=== PATIENT | male | born 1960 | race African-American/Black ===

== ENCOUNTER 2017-01-30 00:07 | Emergency (ER) | payer OTHER ==
[~2017-01-30] VITALS: Ht 190.5 cm; Wt 100.7 kg
--- NOTE | ~2017-01-30 | CT4 ---
[facility] A Service of [facility] RADIOLOGY TEXT RESULTS PATIENT: ILDEFONSO FARRAR LOCATION: SED : 60 UNIT #: [id number] AGE: [address]: Wilmar Dominguez MD SEX: M ORDER DR: [id number] [place] [id number] E MR#: [id number] Acc #: [id number] NAME: ILDEFONSO FARRAR : 1960 SEX: M STUDY DATE/TIME: 01/30/2017 0:43 UNIT: SED ROOM: STUDY DESCRIPTION: CT Abd and Pelv Wo Cont Attending Physician: Wilmar Dominguez M.D. Ordering Physician: Wilmar Dominguez M.D. MEDICAL IMAGING REPORT This report is preliminary unless electronic signature is present. EXAM CT abdomen and pelvis without contrast INDICATION Right flank pain since 01/26/2017. PROCEDURE Unenhanced CT of the abdomen and pelvis. This CT examination was performed with one or more of the following radiation dose reduction techniques: automatic exposure control, adjustment of mA and/or kV according to patient size, and iterative reconstruction. COMPARISON None. FINDINGS ABDOMEN WITHOUT CONTRAST: Included lung bases clear. The liver, spleen, adrenal glands, pancreas and gallbladder have an unremarkable unenhanced appearance. Uncomplicated colonic diverticula. Appendix normal. 1-2 mm calculus in the right UVJ. [id number] hydronephrosis. PELVIS WITHOUT CONTRAST: No radiodense bladder calculus. No aggressive appearing bone lesion. IMPRESSION 1. 1-2 mm calculus in the right UVJ with moderate hydronephrosis. 2. No other acute findings. [facility] A Service of [facility] RADIOLOGY TEXT RESULTS PATIENT: ILDEFONSO FARRAR LOCATION: SED : 60 UNIT #: [id number] AGE: [address]: Wilmar Dominguez MD SEX: M ORDER DR: Dictated by... Panchito Bone M.D. THIS IS AN ELECTRONICALLY VERIFIED REPORT Panchito Bone M.D. at 01/30/2017 9:59 PM DESTINI/alysa TD: 01/30/2017 09:34 JOB #: [id number] MEDICAL IMAGING REPORT Page 1 of 1
[2017-01-30 00:31] LABS: BASOPHIL# 0.1 X10e3 (0-0.3); BASOPHIL% 0.5 % (0-2.5); DIFF IND NO; EOSINOPHIL# 0.1 X10e3 (0-0.7); EOSINOPHIL% 0.6 % (0.0-7.0); HEMATOCRIT 46.1 % (38.0-50.0); HEMOGLOBIN 15.8 gm/dL (13.0-16.0); LYMPHOCYTE# 1.7 X10e3 (1.0-3.5); LYMPHOCYTE% 12.6 % (17.0-45.0); MEAN CELL VOLUME 90.4 FL (83-96); MEAN CORPUSCULAR HEMOGLOBIN 30.9 PG (28-34); MEAN CORPUSCULAR HGB CONC 34.2 g/dL (30-36); MEAN PLATELET VOLUME 9.5 FL (6.5-11.5); MONOCYTE# 0.8 X10e3 (0-1.0); MONOCYTE% 5.6 % (3.0-12.0); NEUTROPHIL# 10.9 X10e3 (1.5-7.1); NEUTROPHIL% 80.7 % (40-75); PLATELET COUNT 225 X10e3 (140-420); RED CELL DISTRIBUTION WIDTH 14.9 % (11.0-15.5); WHITE BLOOD COUNT 13.5 X10e3 (4.0-10.5)
[2017-01-30 00:45] LABS: ALBUMIN SERUM 4.7 g/dL (3.5-5.0); BILIRUBIN, DIRECT 0.1 mg/dL (0.0-0.2); BILIRUBIN,INDIRECT 0.6 mg/dL (0.0-0.9); BILIRUBIN,TOTAL 0.7 mg/dL (0.2-2.0); BUN/CREATININE RATIO 12.5; CREATININE SERUM 1.2 mg/dL (0.6-1.4); GLOM FILT RATE Estimated 77.9 mL/min (>60); POTASSIUM 3.1 mmol/L (3.5-5.1); PROTEIN TOTAL SERUM 8.2 g/dL (6.0-8.3)
[2017-01-30 01:29] LABS: URINE SOURCE CLEAN CATCH
[2017-01-30 01:32] LABS: URINE APPEARANCE CLEAR; URINE BILIRUBIN NEG (NEG); URINE BLOOD 3+ (NEG); URINE COLOR YELLOW; URINE GLUCOSE NEG (NORM); URINE LEUKOCYTE ESTERASE NEG (NEG); URINE NITRATE NEG (NEG); URINE PROTEIN 1+ (NEG); URINE SPECIFIC GRAVITY 1.015 (1.003-1.035)
[2017-01-30 01:34] LABS: CULTURE INDICATED? NO; MICRO INDICATED? YES; URINE BACTERIA NEG (NEG); URINE KETONE 3+ (NEG); URINE RBC 25-50 /[HPF] (0-2); URINE WBC 0-2 /[HPF] (0-5)
[2017-01-30 01:35] LABS: URINE MUCUS PRESENT; URINE SQUAMOUS EPITHELIAL CELL FEW /[HPF]
== END 2017-01-30 01:59 | disposition home or self-care (01) ==
LOC: SED 00:07
PROVIDERS: Emergency Medicine
DX: N13.2 Hydronephrosis with renal and ureteral calculous obstruction (principal)
CPT/HCPCS: 36415; 74176; 80048; 80076; 81003; 83690; 85025; 96374; 96375; 99284; J1170; J1885; J2405